=== PATIENT | male | born 1995 ===

== ENCOUNTER 2018-05-29 15:44 | Outpatient (CLI) | payer BC ==
[2018-05-29] MEDS ORDERED: IBUP-1223 PO (16:15)
== END 2018-05-29 23:59 | disposition home or self-care (01) ==
LOC: STAR 15:44
PROVIDERS: ATTEND Orthopaedic Surgery
DX: Z02.9 Encounter for administrative examinations, unspecified (principal)

== ENCOUNTER 2018-06-04 09:47 | Day surgery (SDC) | payer BC, OTHER ==
[~2018-06-04] VITALS: Ht 177.8 cm; Wt 114.6 kg
[~2018-06-04 09:47] MED LIST: FENTANYL PF 250 MCG/5ML ONE; IBUP-1223 PO; LIDOCAINE 1%, 20ML ONE; MIDAZOLAM 1 MG/ML, 2ML ONE
[2018-06-04] MEDS ORDERED: LACTATED RINGERS 1,000 ML IV SCH (10:09)
[2018-06-04] MEDS ORDERED: LIDOCAINE-MPF 1%, 2ML INFIL ONE (10:30)
[2018-06-04] MEDS ORDERED: CEFAZOLIN 1,000 MG ONE (10:42)
[2018-06-04] MEDS ORDERED: PROPOFOL 10 MG/ML, 20ML ONE (10:42)
[2018-06-04] MEDS ORDERED: ROPIvacaine/PF 0.5%, 30 ML ONE (10:56)
[2018-06-04] MEDS ORDERED: BUPIVACAINE/PF 0.5% ONE (10:56)
[2018-06-04] MEDS ORDERED: OXYcodone 5 MG/5 ML ORAL.SOL UDC PO PRN (11:00)
[2018-06-04] MEDS ORDERED: MEPERIDINE/PF 25MG/0.5ML IVPush PRN (11:00)
[2018-06-04] MEDS ORDERED: ACETAMINOPHEN 325 MG TABLET PO PRN (11:00)
[2018-06-04] MEDS ORDERED: LABETALOL 5MG/ML, 20ML IV PRN (11:00)
[2018-06-04] MEDS ORDERED: PROMETHAZINE 12.5 MG SUPP PR PRN (11:00)
[2018-06-04] MEDS ORDERED: PROMETHAZINE 25 MG SUPP PR PRN (11:00)
[2018-06-04] MEDS ORDERED: PROMETHAZINE 25 MG/ML, 1ML IV PRN (11:00)
[2018-06-04] MEDS ORDERED: HYDROmorphone 2 MG/ML, 1ML IVPush PRN (11:00)
[2018-06-04] MEDS ORDERED: ONDANSETRON 2MG/ML, 2ML IV PRN (11:00)
[2018-06-04] MEDS ORDERED: hydrALAzine 20 MG/ML, 1ML IV PRN (11:00)
[2018-06-04] MEDS ORDERED: ONDANSETRON ODT 8 MG PO PRN (11:00)
[2018-06-04] MEDS ORDERED: EPINEPHRINE 1 MG/ML, 1ML INFIL ONE (11:00)
[2018-06-04] MEDS ORDERED: PROMETHAZINE 25 MG/ML, 1ML IM PRN ×2 (11:00)
[2018-06-04] MEDS ORDERED: MORPHINE SULFATE 4 MG/ML, 1ML IVPush PRN (11:00)
[2018-06-04] MEDS ORDERED: FENTANYL PF 100 MCG/2ML ONE (11:19)
[2018-06-04] MEDS ORDERED: OXYcodone 5 MG/5 ML ORAL.SOL UDC ONE (11:19)
[2018-06-04] MEDS: FENTANYL PF 100 MCG/2ML IV PRN ×2 (11:43→12:16)
== END 2018-06-04 13:50 | disposition home or self-care (01) ==
LOC: OUT 09:47
PROVIDERS: ATTEND Orthopaedic Surgery
DX: S83.232A Complex tear of medial meniscus, current injury, left knee, initial encounter (principal); S83.282A Other tear of lateral meniscus, current injury, left knee, initial encounter; Y93.67 Activity, basketball; Y93.89 Activity, other specified; Y92.89 Other specified places as the place of occurrence of the external cause; Y99.8 Other external cause status
CPT/HCPCS: 29880; J0171; J0690; J2250; J2704; J2795; J3010; J3490; J7120